=== PATIENT | male | born 2000 | race Caucasian/White ===

== ENCOUNTER → 2020-08-30 13:37 | Outpatient (BNVA) | payer OTHER, SELFPAY | PROVIDERS: Family Provider Family Medicine; PCP Optometrist; Visit Provider Registered Nurse Neonatal Intensive Care | DX: Z20.822 Contact with and (suspected) exposure to COVID-19 (principal) | CPT/HCPCS: 87635 ==

== ENCOUNTER 2024-05-17 15:33 | Inpatient (IN) | payer SELFPAY ==
[2024-05-17] VITALS (13 sets, daily range): BP systolic 113–121; BP diastolic 64–90; PULSE 96–129; RESP 12–20; TEMP 36.5–36.7; O2SAT 93–98; BMI 19.0
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
[2024-05-17 16:47] LABS: Basophils # 0.1 10^3/uL (0.0-0.1); Basophils % 0.9 %; Eosinophils # 0.1 10^3/uL (0.0-0.8); Eosinophils % 1.7 %; Hematocrit 56.9 % (37-53); Lymphocytes # 2.4 10^3/uL (0.8-4.8); Mean Corpuscular HGB Conc 33.6 g/dL (30-55); Mean Corpuscular Hemoglobin 34.2 pg (27-33); Mean Platelet Volume 10.3 fL (7.4-10.4); Monocytes # 0.6 10^3/uL (0.2-0.9); Monocytes % 7.8 %; Neutrophils % 57.2 %; Nucleated Red Blood Cells % 0 %; Platelet Count 213 10^3/cmm (157-399); Red Blood Count 5.58 10^6/uL (3.85-5.65); White Blood Count 7.53 10^3/uL (3.29-11.43)
[2024-05-17] MEDS: nicotine 21 mg Patch 1 PATCH TRANSDERMA (16:48)
[2024-05-17 17:04] LABS: Alanine Aminotransferase 16 U/L (0-41); Albumin Level 4.4 g/dL (3.5-5.2); Alcohol Level 173 mg/dL (0-10); Alkaline Phosphatase 56 U/L (40-130); Anion Gap 17.5 (5-19); Aspartate Amino Transferase 19 U/L (0-40); Blood Urea Nitrogen 9 mg/dL (6-20); Calcium 8.9 mg/dL (8.5-10.5); Carbon Dioxide 23 mmol/L (22-29); Chloride 103 mmol/L (98-107); Creatinine Clr Calc Pharmacy 111.7182; Globulin 2.7 g/dL (1.3-4.6); Glucose 144 mg/dL (65-115); Osmolality Calculated 291 mOsm/kg (285-295); Potassium 3.5 mmol/L (3.5-5.1); Sodium 140 mmol/L (136-145); Total Bilirubin 0.9 mg/dL (0.15-1.2); Total Protein 7.1 g/dL (6.6-8.7)
[2024-05-17 17:05] LABS: Acetaminophen < 5.0 ug/mL (10-30); Salicylate < 0.3 mg/dL (3-10)
--- NOTE | 2024-05-17 17:26 | PC.NURSE ---
THIS RN CONTACTED [facility] DUE TO PT REPORTING INGESTION OF KLONOPIN, SUBOXONE AND XANAX PRIOR TO ARRIVAL. POISON CONTROL WAS UPDATED ON ALL REPORTED INGESTED SUBSTANCES AND ALCOHOL LEVEL OF 173. UNABLE TO OBTAIN URINE DRUG SCREEN DUE TO REFUSAL. VITALS REPORTED. POISON CONTROL STATED THEY RECOMMEND SUPPORTIVE CARE OF SYMPTOMS AND NO RAMZICON. THEY ALSO STATE THAT 2ND AND 3RD GENERATION BENZODIAZAPINES MAY BE USED LIBERALLY FOR AGITATION OPPOSED TO ANTI-PSYCHOTIC DRUGS. POISON CONTROL WILL SEND OVER TOX BRIEFS ON MEDICATIONS INGESTED AND WILL CHECK IN ON PT LATER THIS EVENING. PT'S RN WAS UPDATED ON ALL THE ABOVE INFORMATION. PT CURRENTLY RESTING IN NO DISTRESS AT THIS TIME.
[2024-05-17] MEDS: sodium chloride 0.9% 1,000 ML 999 ML IV (19:06)
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
[2024-05-17] MEDS: sodium chloride 0.9% 1,000 ML 100 ML IV (19:44)
[2024-05-17] MEDS: nicotine 4 mg lozenge MUCOUS MEM ×2 (20:21→23:54)
--- NOTE | 2024-05-17 21:44 | PC.NURSE ---
Poison control called to get update on pt. They said the meds he took are out of the system pretty quickly and with his stable condition/improvement they will close the case and are not likely to call back.
[2024-05-18] VITALS (27 sets, daily range): BP systolic 106–119; BP diastolic 72–86; PULSE 69–109; RESP 12–24; TEMP 36.7; O2SAT 90–99; BMI 19.6
[2024-05-18] MEDS: nicotine 4 mg lozenge MUCOUS MEM ×4 (03:37→20:03)
[2024-05-18 04:18] LABS: Bacteria Urine None Seen /hpf; Hyaline Casts Urine 17.77 /lpf; RBC Urine 0-2 /hpf (0-2); Squamous Epithelial Cell Urine 0-5 /hpf (0-5); Universal Test for UA Present (0); WBC Urine 0-5 /hpf (0-5)
[2024-05-18 04:21] LABS: Basophils # 0.1 10^3/uL (0.0-0.1); Basophils % 0.9 %; Eosinophils # 0.1 10^3/uL (0.0-0.8); Eosinophils % 1.7 %; Hematocrit 52.2 % (37-53); Lymphocytes # 2.1 10^3/uL (0.8-4.8); Mean Corpuscular HGB Conc 33.1 g/dL (30-55); Mean Corpuscular Hemoglobin 34.6 pg (27-33); Mean Corpuscular Volume 104.4 fl (82-101); Mean Platelet Volume 10.5 fL (7.4-10.4); Monocytes # 0.7 10^3/uL (0.2-0.9); Monocytes % 9.2 %; Neutrophils # 4.47 10^3/uL (1.8-7.7); Neutrophils % 59.9 %; Nucleated Red Blood Cells % 0 %; Platelet Count 172 10^3/cmm (157-399); White Blood Count 7.47 10^3/uL (3.29-11.43)
[2024-05-18 04:32] LABS: Urine Color Dark Yellow (Yellow)
[2024-05-18 04:33] LABS: Add Urine Microscopic? YES; Bilirubin Urine 1+ (Negative); Blood Urine Neg (Negative); Glucose Urine UA Norm (Normal); Ketones Urine Negative (Negative); Leukocyte Esterase Urine Trace (Negative); Mucus Urine 4+ /hpf; Nitrate Urine Negative (Negative); Protein Urine Trace (Negative); Urine Appearance Clear (CLEAR); Urobilinogen Urine 4 mg/dL (Negative); pH Urine 5 (5-7)
[2024-05-18 04:36] LABS: INR 1.05 (0.8-1.2)
[2024-05-18 04:36] LABS: Amphetamines Screen Urine Positive (Negative); Barbiturates Screen Urine Negative (Negative); Benzodiazepines Screen Urine Positive (Negative); Cocaine Screen Urine Negative (Negative); Opiate Screen Urine Negative (Negative); PCP Screen Urine Negative (Negative); THC Screen Urine Positive (Negative)
[2024-05-18 04:37] LABS: Partial Thromboplastin Time 29.8 SECONDS (23.9-36.7)
[2024-05-18] MEDS: sodium chloride 0.9% 1,000 ML 999 ML IV (04:42)
[2024-05-18] MEDS: thiamine 100 mg Tablet PO ×2 (04:43→08:53)
[2024-05-18] MEDS: folic acid 1 mg Tablet PO (04:43)
[2024-05-18 04:48] LABS: Alanine Aminotransferase 13 U/L (0-41); Alkaline Phosphatase 48 U/L (40-130); Anion Gap 12.6 (5-19); Aspartate Amino Transferase 14 U/L (0-40); Blood Urea Nitrogen 10 mg/dL (6-20); Calcium 8.8 mg/dL (8.5-10.5); Carbon Dioxide 27 mmol/L (22-29); Chloride 103 mmol/L (98-107); Creatinine Clr Calc Pharmacy 128.3556; Globulin 2.2 g/dL (1.3-4.6); Glucose 93 mg/dL (65-115); Magnesium 1.9 mg/dL (1.7-2.3); Osmolality Calculated 285 mOsm/kg (285-295); Potassium 4.6 mmol/L (3.5-5.1); Sodium 138 mmol/L (136-145); Total Bilirubin 0.8 mg/dL (0.15-1.2); Total Protein 6.2 g/dL (6.6-8.7)
[2024-05-18 05:43] LABS: Thyroid Stimulating Hormone 1.38 uIU/mL (0.27-4.20); Vitamin B12 151 pg/mL (232-1245)
[2024-05-18 05:45] LABS: Folate Level 5.7 ng/mL (4.5-32.2)
[2024-05-18] MEDS: sodium chloride 0.9% 1,000 ML 100 ML IV (05:53)
[2024-05-18 06:53] LABS: Free T4 Free Thyroxine 1.15 ng/dL (0.82-1.77)
[2024-05-18] MEDS: multivitamin therapeutic Tablet 1 TAB PO (08:53)
[2024-05-18] MEDS: nicotine 21 mg Patch 1 PATCH TRANSDERMA (08:53)
--- NOTE | 2024-05-18 09:30 | PM.PN ---
Vitals/I&O/Wt Last Vital Signs Temp 98.1 F 05/18/24 04:00 Pulse 78 05/18/24 09:00 Resp 20 H 05/18/24 09:00 BP 119/79 05/18/24 08:30 Pulse Ox 99 05/18/24 09:00 O2 Del Method Room Air 05/18/24 09:00 05/17/24 05/18/24 05/18/24 22:59 06:59 14:59 Intake Total 1480 / 1480 2720 / 4200 222 / 222 Output Total 100 / 100 Balance 1480 / 1480 2620 / 4100 222 / 222 Weight last 48 hrs Weight 66 kg Weight 66 kg Weight 66 kg Weight 63.503 kg Data 05/18/24 03:36 05/18/24 03:36 A&P PDMP PDMP Reviewed: Not Reviewed Coding Level of Care Code Acute Code for Chg Fwbeatriz
[2024-05-18] MEDS: nicotine 2 mg Gum BUCCAL (10:43)
[2024-05-18] MEDS: OLANZapine 5 mg ODT PO (10:44)
[2024-05-18] MEDS: LORazepam 2 mg Tablet PO (11:37)
[2024-05-18] MEDS: haloperidol 5 mg Tablet PO ×2 (11:37→20:26)
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
[2024-05-18] MEDS: diphenhydrAMINE 50 mg Capsule PO (11:42)
--- NOTE | 2024-05-18 12:06 | PC.NURSE ---
oral B52 Patient is agitated and anxious. zyprexa was unsuccessful. Patient making statements about going to freak out . This nurse got approval from Dr. Barron for oral b52. Patient provided with his phone to remove phone numbers with no issues. Patient returned phone with no issues. Will continue to closely monitor for effects of medication.
--- NOTE | 2024-05-18 13:10 | PC.NURSE ---
Admission assessment Patient drove himself to the ED for evaluation after overdosing xanax, clonazepam, and suboxone. Patient is a daily drinker; his ETOH on arrival to the ED was 173. Patient says he drinks 6-12 Brazilian Honey shooters each day. This helps him to sleep at night. Patient also endorses smoking weed daily because it decreases his anxiety level. When this nurse asked patient if he feels suicidal at the moment. Patient denied, saying that he feels fine, that he does not need to be here in the nut house . When this nurse asked patient if he overdosed on medications to end his life patient was unclear. Patient said that he no longer wants to live, but that if he had wanted to end his life, he would have taken more meds and not drove himself to the hospital. Patient has been upset because his fiance of 4 years recently cheated on him, and now their relationship is over. Patient has caught a stalking charge from bothering his ex-girlfirend. Patient has court on 05/19/24 in [facility] and is worried about missing this. Staff and security have assured patient numerous times that the registered nurse hh case manager will handle this. Patient frequently became agitated during admission assessment. Patient refused to sign any admission documents and refused to have his VS taken. Patient was agreeable to medications to help lower the agitation level. When asking patient the suicide risk assessment questions, patient gave vague answers to some of the questions.
--- NOTE | 2024-05-18 13:13 | PC.NURSE ---
patient cussed at me refusing vitals
--- NOTE | 2024-05-18 13:14 | PC.NURSE ---
outburst On arrival to NPU from ICU, patient was agitated. Patient demanding to see the doctor right away because he was told that once he got onto the unit, he would be able to talk to the doctor and go home. Patient ripped his arm bands from his wrists and threw them onto the floor. Patient yelling obsentities. Donald echevarria Wimba was able to verbally de-esculate patient. This nurse adminstered nicotine gum and zyprexa. Patient then went to the dayroom with both Donald and Maynor cantrell and they chatted with patient. Patient visibly calmer and more cooperative.
--- NOTE | 2024-05-18 15:33 | PC.NURSE ---
During bisiting hour, patient got agitated about being on the unit. Patient kicked the door multiple times, with aggression. Security Bennett called. Security Mcguire already present, working as a 1:1. Patient did calm down enough to continue with visitation
[2024-05-18] MEDS: trazodone 50 mg Tablet PO (20:26)
--- NOTE | 2024-05-18 23:28 | PC.NURSE ---
Ally refused his vitals tonight. His respiratory rate was 16. The charge nurse was notified.
[2024-05-19 04:00] VITALS: RESP 16
--- NOTE | 2024-05-19 06:44 | PC.NURSE ---
Ally refused his vital this morning. Charge nurse was notified.
[2024-05-19 08:00] VITALS: RESP 16
[2024-05-19] MEDS: nicotine 4 mg lozenge MUCOUS MEM ×4 (08:37→16:20)
--- NOTE | 2024-05-19 08:54 | PC.NURSE ---
Morning assessment Patient irritable during morning assessment. Patient said that this nurse can get me the fuck out of here! Patient irritable and uncooperative. Patient refusing morning blood draw. Patient said that the staff here are lazy fucks who don't give a fuck about me! Patient refused morning vitamins
[2024-05-19 12:00] VITALS: RESP 18
[2024-05-19 16:00] VITALS: BP 118/85; PULSE 92; RESP 18; TEMP 36.8; O2SAT 98
--- NOTE | 2024-05-19 17:19 | P.NPUPN_ITS ---
Subjective NPU 2 Subjective: Patient presented today reporting that he is feeling better and wanting to discharge. We discussed our imperative to make sure that he is actually safe to go given his presentation and his behavior on the emergency department. She reported that I blacked out and do not really remember what happened. We discussed that that is not a better situation because he does not remember what he did. We discussed the importance of figuring out what he needs from the standpoint of either medications, mental health treatment or sober living treatment that might assist him and not repeating the events that led to him getting here. He continued to report that it was more about how he was cheated on and things of that nature. We discussed the importance of him focusing on his behaviors that got him in this situation. Mental Status Exam 2 MSE Comments: This is a slender but well developed white male in hospital scrubs with limited grooming and eye contact. No abnormal movements except for significant psychomotor retardation with occasional agitation related to having to be here. Mostly uncooperative with exam in moderate to extreme distress. Speech was decreased rate and volume with some dysarthria and almost slurring at times. Mood described as upset, affect is congruent and irritable. Thought process, linear. Thought content: patient denies suicidal or homicidal ideation but expressed significant agitation and irritability towards being hospitalized, no delusions reported or noted, and denies any auditory or visual hallucinations. Explicitly stated not suicidal and does not want to hurt self or others. Feeling volatile due to recent stressors, including the breakup of a four-year relationship, loss of job, and arrest, but reports starting to feel better. Attention and concentration are intact and memory appeared mostly reliable with likely some purposeful deception or attempted deception, but none were formally tested. He is alert and oriented x 3. Insight, judgment and impulse control are impaired. Vitals/I&O/Wt Last Vital Signs Temp 98.2 F 05/19/24 16:00 Pulse 92 05/19/24 16:00 Resp 18 05/19/24 16:00 BP 118/85 05/19/24 16:00 Pulse Ox 98 05/19/24 16:00 O2 Del Method Room Air 05/18/24 10:36 Weight last 48 hrs Weight 65.771 kg Weight 65.771 kg Weight 66 kg Weight 66 kg Weight 66 kg Data NPU 05/18/24 03:36 05/18/24 03:36 A&P Assessment and plan (1) Suicide attempt by multiple drug overdose: (2) Polysubstance use disorder: (3) Partner relational problem: (4) Depression: Plan This is a 24year old white male with a history of addiction and recent significant psychosocial stressors including discovering that his girlfriend has been cheating, active addiction and reportedly losing his job secondary to getting arrested. He denies any need for ongoing hospitalization in the moment that the conversation did not yield a clear sense that he was being discharged he essentially shut down and discontinued our conversation. The patient is experiencing significant emotional distress following the end of a four-year relationship, which involved infidelity by their partner. Despite the distress, the patient denies any suicidal ideation or intent to harm themselves or others. The patient self-reported taking an excessive amount of prescription medication, which led to their arrival at the hospital, but they did not experience any adverse physical effects from this action. The patient is currently feeling volatile but indicates a desire to move forward with their life, including attending a job interview. There is no history of mental health treatment or psychiatric hospitalization reported. 1. Consider medication 2. Encourage individual, group and milieu therapy 3. Continue q-15 minute check for safety 4. Recommend sober living treatment at the highest level of care to which the patient is willing to commit. 5. Evaluate against the backdrop of the 96-hour hold. 6. Obtain collateral information. PDMP PDMP Reviewed: Not Reviewed Involuntary Hold Information 2 Hold Status: Legal Status: 96 Hour Hold Date/Time Hold Expires: 05/23/2024 @ 0001 Attestations NPU 2 Medical Necessity Statement*: Inpatient hospitalization is medically necessary and the clinically appropriate intervention at this time. We will monitor medications and make changes as indicated. The patient's Likely length of stay is 2-4 days. Coding Level of Care Code Acute Code for [facility] Fwd Diagnoses Suicide attempt by multiple drug overdose T50.912A Polysubstance use disorder F19.90 Partner relational problem Z63.0 Depression F32.A
[2024-05-19 20:00] VITALS: BP 90/56; PULSE 69; RESP 16; TEMP 36.8; O2SAT 97
--- NOTE | 2024-05-20 00:07 | PC.NURSE ---
Pt. refused 0000 V/S. Respirations 16 no s/s of distress noted. Charge nurse informed.
--- NOTE | 2024-05-20 04:18 | PC.NURSE ---
Pt. refused 0400 V/S. Pt. said this is fucking ridiculous . Charge nurse informed.
--- NOTE | 2024-05-20 06:51 | CSC.PPN_ITS ---
A&P PDMP PDMP Reviewed: Not Reviewed
--- NOTE | 2024-05-20 06:51 | W.CSC.PN ---
A&P PDMP PDMP Reviewed: Not Reviewed
--- NOTE | 2024-05-20 06:52 | P.NPUPN_ITS ---
Subjective NPU 2 Subjective: Patient presented today reporting that he is feeling all right. He reports that he had no intention of killing himself and that he has limited addiction issues reporting that he only smokes marijuana and likes to get high that way but generally speaking otherwise he avoids drugs and he works and that he is a good person. He reports that he just did not feel well with finding out that his girlfriend was cheating and got out of control. He reports that he excepts that that situation is in the past and just wants to get out and get back to work and be done with the hospital. Mental Status Exam 2 MSE Comments: This is a slender but well developed white male in hospital scrubs with limited grooming and eye contact. No abnormal movements except for mild psychomotor retardation. Mostly cooperative with exam in no acute distress. Speech was decreased rate and volume but improving. Mood described as better I was just being stupid, affect is congruent. Thought process, linear. Thought content: patient denies suicidal or homicidal ideation, no delusions reported or noted, and denies any auditory or visual hallucinations. Explicitly stated not suicidal and does not want to hurt self or others. Feeling volatile due to recent stressors, including the breakup of a four-year relationship, loss of job, and arrest, but reports starting to feel better. Attention and concentration are intact and memory appeared mostly reliable with likely some purposeful deception or attempted deception, but none were formally tested. He is alert and oriented x 3. Insight and judgment are limited and impulse control is limited. Vitals/I&O/Wt Last Vital Signs Temp 98.2 F 05/19/24 20:00 Pulse 69 05/19/24 20:00 Resp 16 05/19/24 20:00 BP 90/56 05/19/24 20:00 Pulse Ox 97 05/19/24 20:00 O2 Del Method Room Air 05/19/24 20:00 05/19/24 05/19/24 05/20/24 14:59 22:59 06:59 Intake Total 222 / 222 Output Total 100 / 100 Balance 122 / 122 Weight last 48 hrs Weight 65.771 kg Weight 65.771 kg Data NPU 05/18/24 03:36 05/20/24 14:10 A&P Assessment and plan (1) Suicide attempt by multiple drug overdose: (2) Polysubstance use disorder: (3) Partner relational problem: (4) Depression: Plan This is a 24year old white male with a history of addiction and recent significant psychosocial stressors including discovering that his girlfriend has been cheating, active addiction and reportedly losing his job secondary to getting arrested. He denies any need for ongoing hospitalization in the moment that the conversation did not yield a clear sense that he was being discharged he essentially shut down and discontinued our conversation. The patient is experiencing significant emotional distress following the end of a four-year relationship, which involved infidelity by their partner. Despite the distress, the patient denies any suicidal ideation or intent to harm themselves or others. The patient self-reported taking an excessive amount of prescription medication, which led to their arrival at the hospital, but they did not experience any adverse physical effects from this action. The patient is currently feeling volatile but indicates a desire to move forward with their life, including attending a job interview. There is no history of mental health treatment or psychiatric hospitalization reported. 1. Consider medication 2. Encourage individual, group and milieu therapy 3. Continue q-15 minute check for safety 4. Recommend sober living treatment at the highest level of care to which the patient is willing to commit. 5. Evaluate against the backdrop of the 96-hour hold. 6. Obtain collateral information. PDMP PDMP Reviewed: Not Reviewed Involuntary Hold Information 2 Hold Status: Legal Status: 96 Hour Hold Date/Time Hold Expires: 05/23/2024 @ 0001 Attestations NPU 2 Medical Necessity Statement*: Inpatient hospitalization is medically necessary and the clinically appropriate intervention at this time. We will monitor medications and make changes as indicated. The patient's Likely length of stay is 1-3 days. Coding Level of Care Code Acute Code for [facility] Fwd Diagnoses Suicide attempt by multiple drug overdose T50.912A Polysubstance use disorder F19.90 Partner relational problem Z63.0 Depression F32.A
[2024-05-20] MEDS: nicotine 4 mg lozenge MUCOUS MEM ×8 (08:07→23:18)
--- NOTE | 2024-05-20 09:00 | PC.NURSE ---
MEDS, ASSESSMENT PT REFUSED MEDS AND ASSESSMENT, WILL CONTINUE TO MONITOR.
[2024-05-20 12:00] VITALS: BP 123/74; PULSE 83; RESP 16; TEMP 36.8; O2SAT 99
[2024-05-20 14:37] LABS: Alanine Aminotransferase 18 U/L (0-41); Albumin Level 4.2 g/dL (3.5-5.2); Alkaline Phosphatase 59 U/L (40-130); Aspartate Amino Transferase 22 U/L (0-40); Blood Urea Nitrogen 9 mg/dL (6-20); Calcium 9.4 mg/dL (8.5-10.5); Carbon Dioxide 30 mmol/L (22-29); Chloride 97 mmol/L (98-107); Creatinine Clr Calc Pharmacy 128.1944; Globulin 2.8 g/dL (1.3-4.6); Glucose 65 mg/dL (65-115); Osmolality Calculated 277 mOsm/kg (285-295); Sodium 135 mmol/L (136-145); Total Bilirubin 1.1 mg/dL (0.15-1.2)
[2024-05-20 16:00] VITALS: BP 141/87; PULSE 90; RESP 17; TEMP 36.4; O2SAT 98
[2024-05-20 20:00] VITALS: BP 148/104; PULSE 91; RESP 18; TEMP 36.3; O2SAT 96
[2024-05-20] MEDS: trazodone 50 mg Tablet PO ×2 (20:02→23:18)
[2024-05-20] MEDS: hyDROXYzine 25 mg Capsule 50 MG PO (20:02)
[2024-05-21 06:00] VITALS: BP 99/61; PULSE 69; RESP 16; TEMP 36.4; O2SAT 97
[2024-05-21] MEDS: nicotine 4 mg lozenge MUCOUS MEM ×6 (08:02→20:14)
[2024-05-21 14:00] VITALS: RESP 16
--- NOTE | 2024-05-21 18:22 | PC.NURSE ---
DUE TO SEVERE WEATHER, VITALS WERE NOT OBTAINED OTHER THAN RESPIRATIONS WERE OBTAINED AT 16. CHARGE NURSE NOTIFIED.
--- NOTE | 2024-05-21 19:33 | P.NPUPN_ITS ---
Subjective NPU 2 Subjective: Patient presented today reporting that he is doing fine. He endorsed being hopeful that he is able to manage his life moving forward and not return to this, setting. He reports that he learned his lesson and accepts that things can go wrong and you just have to deal with it. He reports that his plan is to go and bury himself and work and not look back. He continues to report a plan to still smoke weed but he does not, do any other drugs per his report. He continued to endorse a desire to avoid starting any medications. He was excited about the likely plan for discharge tomorrow. Mental Status Exam 2 MSE Comments: This is a slender but well developed white male in hospital scrubs with grooming and eye contact. No abnormal movements Cooperative with exam in no acute distress. Speech was decreased rate and volume but improving. Mood described as better, affect is congruent. Thought process, linear. Thought content: patient denies suicidal or homicidal ideation, no delusions reported or noted, and denies any auditory or visual hallucinations. Attention and concentration are intact and memory appeared mostly reliable, but none were formally tested. He is alert and oriented x 3. Insight and judgment are limited and impulse control is limited. Vitals/I&O/Wt Last Vital Signs Temp 98.2 F 05/21/24 20:53 Pulse 82 05/21/24 20:53 Resp 15 05/21/24 20:53 BP 111/71 05/21/24 20:53 Pulse Ox 97 05/21/24 20:53 O2 Del Method Room Air 05/21/24 20:53 Data NPU 05/18/24 03:36 05/20/24 14:10 A&P Assessment and plan (1) Suicide attempt by multiple drug overdose: (2) Polysubstance use disorder: (3) Partner relational problem: (4) Depression: Plan This is a 24year old white male with a history of addiction and recent significant psychosocial stressors including discovering that his girlfriend has been cheating, active addiction and reportedly losing his job secondary to getting arrested. He denies any need for ongoing hospitalization in the moment that the conversation did not yield a clear sense that he was being discharged he essentially shut down and discontinued our conversation. The patient is experiencing significant emotional distress following the end of a four-year relationship, which involved infidelity by their partner. Despite the distress, the patient denies any suicidal ideation or intent to harm themselves or others. The patient self-reported taking an excessive amount of prescription medication, which led to their arrival at the hospital, but they did not experience any adverse physical effects from this action. The patient is currently feeling volatile but indicates a desire to move forward with their life, including attending a job interview. There is no history of mental health treatment or psychiatric hospitalization reported. 1. Consider medication. He is not interested in restarting any medication. 2. Encourage individual, group and milieu therapy 3. Continue q-15 minute check for safety 4. Recommend sober living treatment at the highest level of care to which the patient is willing to commit. 5. Evaluate against the backdrop of the 96-hour hold. 6. Obtain collateral information. 7. Tentative plan for discharge tomorrow. PDMP PDMP Reviewed: Not Reviewed Involuntary Hold Information 2 Hold Status: Legal Status: 96 Hour Hold Date/Time Hold Expires: 05/23/2024 @ 0001 Attestations NPU 2 Medical Necessity Statement*: Inpatient hospitalization is medically necessary and the clinically appropriate intervention at this time. We will monitor medications and make changes as indicated. The patient's Likely length of stay is 1-2 days. Coding Level of Care Code Acute Code for [facility] Fwd Diagnoses Suicide attempt by multiple drug overdose T50.912A Polysubstance use disorder F19.90 Partner relational problem Z63.0 Depression F32.A
[2024-05-21] MEDS: trazodone 50 mg Tablet PO ×2 (20:13→21:45)
[2024-05-21] MEDS: hyDROXYzine 25 mg Capsule 50 MG PO (20:14)
[2024-05-21 20:53] VITALS: BP 111/71; PULSE 82; RESP 15; TEMP 36.8; O2SAT 97
[2024-05-22 06:00] VITALS: BP 121/75; PULSE 70; RESP 17; TEMP 36.8; O2SAT 96
[2024-05-22] MEDS: nicotine 4 mg lozenge MUCOUS MEM ×2 (07:57→10:14)
[2024-05-22] MEDS: folic acid 1 mg Tablet PO (08:46)
[2024-05-22] MEDS: thiamine 100 mg Tablet PO (08:46)
[2024-05-22] MEDS: multivitamin therapeutic Tablet 1 TAB PO (08:46)
--- NOTE | 2024-05-22 09:50 | P.NPUDS_ITS ---
Diagnoses at Discharge Discharge Diagnosis (1) Suicide attempt by multiple drug overdose: Status: Acute (2) Polysubstance use disorder: Status: Acute (3) Partner relational problem: Status: Acute (4) Depression: Status: Acute Reason for Visit Reason for Visit: mhe Brief History: HPI NPU History of Present Illness Ally Gonsalez is a 24 year old male who presented to the emergency department with the following report: Ally Gonsalez is a 24 yo man w/ polysubstance use d/o who presented to the ED on 05/17/2024 after a suicide attempt where he consumed 2 Xanax bars, 4 Clonazepam pills and ate a Suboxone strip. He tells me that has had a girlfriend for 4yrs and was engaged to be for the last 2 years. She left him 2 weeks ago, and he was madly in love with her. He states that he caught her cheating on him. He is hurt that she would not talk to him or be upfront and with him. His feels that his dad does not care about him. His mother when he was 5 years due drug overdose on pain killers. He states, I was really broken. I am trying so hard and everything back firing and tired of getting in trouble. He feels that no one cares about him. He is upset that his ex-girlfriend took his dog, despite his having the paper work showing that it is his. He feels that he does not have kids or a purpose and feels heart broken, so he took 2 Xanax bars, 4 Clonazepam pills and ate a Suboxone strip. He realized that he made a wrong decision, so he drove himself to the hospital. He smokes Marijuana primarily and generally stays away from everything else. He consumes alcohol daily. He had about 12 shots of [place] Honey whiskey last night. In the ED, his alcohol level was elevated. His acetaminophen and salicylate levels were within normal limits. Per ED notes, patient tried to run twice from the ED, when he understood that he had made a suicide attempt. He was combative and required restraints, that was later removed, after the ED physician spoke with him. The Psychiatrist was consulted by the ED physician, who recommended admission to the ICU for further monitoring and management. He was admitted to the ICU for definitive treatment of those issues but was quickly medically cleared and transferred to the neuropsychiatric unit for definitive treatment of these addiction issues and his mental health concerns. He is unknown to [facility] psychiatry through inpatient services but there appears to have been an outpatient contact back in 2017 but no notes were available. He presented with a UDS positive for benzodiazepines, cannabis and amphetamines reporting. Chief complaint Overdose on prescription medications following emotional distress from a breakup. History of the present complaint The patient reports experiencing significant emotional distress following the end of a four-year relationship due to infidelity. The breakup has led to feelings of loss, as the partner took their dogs when leaving. The patient expresses a sense of volatility but notes a gradual improvement in mood. The patient denies any suicidal ideation or intent to harm themselves or others. However, they mention taking an excessive amount of prescription medication, which prompted them to seek help at the hospital. The patient drove themselves to the hospital and reports not experiencing any adverse physical effects such as vomiting or illness from the medication. The patient is currently unemployed and has a job interview scheduled for the following morning. They attribute the loss of their previous job to an arrest incident involving their former partner. The patient expresses frustration and confusion about the circumstances leading to their job loss. The patient denies any history of mental health treatment or previous psychiatric hospitalizations. They also deny substance use, including tobacco, alcohol, marijuana, and methamphetamine, although they mention occasional alcohol consumption. The patient has not been placed on a psychiatric hold before this incident and voluntarily sought help after taking the medication. Mental health history No history of mental health treatment or psychiatric hospitalization reported. Denies suicidal ideation or intent to harm self or others. No current medications for mental health. Social history Currently unemployed and has a job interview scheduled. Lost previous job due to an arrest incident involving a partner. Recently ended a four-year relationship, during which the partner left and took the dogs. No use of tobacco, alcohol, cannabis, methamphetamine, or other substances, except for occasional alcohol consumption. No history of mental health treatment or psychiatric hospitalization. No allergies to medications. Hospital Course Hospital Course He slowly acclimated to the individual, group and milieu therapies. He presented endorsing depression, anxiety, active drug use and recent difficulties with his 4-year relationship leading to the suicide attempt that led to his hospitalization. He was not interested in trying medication and so medications were not started. He was observed against the backdrop of his 96-hour hold to identify whether there is still a risk for harm to himself or others. His abstinence from substances as well as the treatment milieu had a positive response. He worked with the social work team to establish appropriate follow- up services and was connected to appropriate community resources. He was able to contract for safety outside of the hospital prior to discharge. During the hospitalization, patient had routine laboratory studies which were within normal limits except for few outliers. Additionally there was a general medical evaluation which was also within normal limits and revealed no new acute processes. At the time of discharge, he denied psychosis or lethality. Mood and anxiety were well managed. Patient endorsed a plan to avoid all drugs of abuse, and agreed to follow-up with the aftercare recommendations of the treatment team. Patient was evaluated and deemed to be absent credible lethality, and achieved maximum benefit from inpatient hospitalization, so he was discharged. Involuntary Hold Information Hold Status: Legal Status: 96 Hour Hold Date/Time Hold Expires: 05/23/2024 @ 0001 Mental Status Exam MSE Comments: This is a slender but well developed white male in hospital scrubs with grooming and eye contact. No abnormal movements Cooperative with exam in no acute distress. Speech was decreased rate and volume but improving. Mood described as better, affect is congruent. Thought process, linear. Thought content: patient denies suicidal or homicidal ideation, no delusions reported or noted, and denies any auditory or visual hallucinations. Attention and concentration are intact and memory appeared mostly reliable, but none were formally tested. He is alert and oriented x 3. Insight and judgment are limited and impulse control is limited. Discharge Data Studies Completed and Pending: Laboratory Results WBC 7.47 10^3/uL (3.2 9-11.43) 05/18/24 03:36 RBC 5.00 10^6/uL (3.8 5-5.65) 05/18/24 03:36 Hgb 17.30 g/dL (11.27 -16.99) H 05/18/24 03:36 Hct 52.2 % (37-53) 05/18/24 03:36 MCV 104.4 fl (82-101) H 05/18/24 03:36 MCH 34.6 pg (27-33) H 05/18/24 03:36 MCHC 33.1 g/dL (30-55) 05/18/24 03:36 RDW 15.0 % (12.1-15.1 ) 05/18/24 03:36 Plt Count 172 10^3/cmm (157 -399) 05/18/24 03:36 MPV 10.5 fL (7.4-10.4 ) H 05/18/24 03:36 Neut % (Auto) 59.9 % 05/18/24 03:36 Lymph % (Auto) 28.0 % 05/18/24 03:36 Pitt % (Auto) 9.2 % 05/18/24 03:36 Eos % (Auto) 1.7 % 05/18/24 03:36 Baso % (Auto) 0.9 % 05/18/24 03:36 Neut # (Auto) 4.47 10^3/uL (1.8 -7.7) 05/18/24 03:36 Lymph # (Auto) 2.1 10^3/uL (0.8- 4.8) 05/18/24 03:36 Pitt # (Auto) 0.7 10^3/uL (0.2- 0.9) 05/18/24 03:36 Eos # (Auto) 0.1 10^3/uL (0.0- 0.8) 05/18/24 03:36 Baso # (Auto) 0.1 10^3/uL (0.0- 0.1) 05/18/24 03:36 Nucleated RBC % (a uto) 0 % 05/18/24 03:36 Nucleated RBCs # 0.0 /100WBC 05/18/24 03:36 PT 14.50 SECONDS (12 .1-14.9) 05/18/24 03:36 INR 1.05 (0.8-1.2) 05/18/24 03:36 APTT 29.8 SECONDS (23. 9-36.7) 05/18/24 03:36 Sodium 135 mmol/L (136-1 45) L 05/20/24 14:10 Potassium 5.0 mmol/L (3.5-5 .1) 05/20/24 14:10 Chloride 97 mmol/L (98-107 ) L 05/20/24 14:10 Carbon Dioxide 30 mmol/L (22-29) H 05/20/24 14:10 Anion Gap 13.0 (5-19) 05/20/24 14:10 BUN 9 mg/dL (6-20) 05/20/24 14:10 Creatinine 0.9 mg/dL (0.7-1. 2) 05/20/24 14:10 GFR Calculation 102.0 mL/min (90- 130) 05/20/24 14:10 Glucose 65 mg/dL (65-115) 05/20/24 14:10 Calculated Osmolal ity 277 mOsm/kg (285- 295) L 05/20/24 14:10 Calcium 9.4 mg/dL (8.5-10 .5) 05/20/24 14:10 Magnesium 1.9 mg/dL (1.7-2. 3) 05/18/24 03:36 Total Bilirubin 1.1 mg/dL (0.15-1 .2) 05/20/24 14:10 AST 22 U/L (0-40) 05/20/24 14:10 ALT 18 U/L (0-41) 05/20/24 14:10 Alkaline Phosphata se 59 U/L (40-130) 05/20/24 14:10 Total Protein 7.0 g/dL (6.6-8.7 ) 05/20/24 14:10 Albumin 4.2 g/dL (3.5-5.2 ) 05/20/24 14:10 Globulin 2.8 g/dL (1.3-4.6 ) 05/20/24 14:10 Vitamin B12 151 pg/mL (232-12 45) L 05/18/24 03:36 Folate 5.7 ng/mL (4.5-32 .2) 05/18/24 03:36 TSH 1.38 uIU/mL (0.27 -4.20) 05/18/24 03:36 Free T4 1.15 ng/dL (0.82- 1.77) 05/18/24 03:36 Urine Color Dark yellow (Yel low) A 05/18/24 04:00 Urine Appearance Clear (CLEAR) 05/18/24 04:00 Urine pH 5 (5-7) 05/18/24 04:00 Ur Specific Gravit y 1.030 (1.005-1.0 30) 05/18/24 04:00 Urine Protein Trace (Negative) H 05/18/24 04:00 Urine Glucose (UA) Norm (Normal) 05/18/24 04:00 Urine Ketones Negative (Negati ve) 05/18/24 04:00 Urine Blood Neg (Negative) 05/18/24 04:00 Urine Nitrate Negative (Negati ve) 05/18/24 04:00 Urine Bilirubin 1+ (Negative) H 05/18/24 04:00 Urine Urobilinogen 4 mg/dL (Negative ) H 05/18/24 04:00 Ur Leukocyte Eri ase Trace (Negative) A 05/18/24 04:00 Urine RBC 0-2 /hpf (0-2) 05/18/24 04:00 Urine WBC 0-5 /hpf (0-5) 05/18/24 04:00 Ur Squamous Epith Cells 0-5 /hpf (0-5) 05/18/24 04:00 Amorphous Sediment Not Reportable 05/18/24 04:00 Urine Bacteria None seen /hpf (N ONE) 05/18/24 04:00 Hyaline Casts 17.77 /lpf 05/18/24 04:00 Urine Mucus 4+ /hpf 05/18/24 04:00 Salicylates < 0.3 mg/dL (3-10 ) L 05/17/24 16:39 Urine Opiates Scre en Negative ng/mL (N egative) 05/18/24 04:00 Acetaminophen < 5.0 ug/mL (10-3 0) L 05/17/24 16:39 Ur Barbiturates Sc reen Negative ng/mL (N egative) 05/18/24 04:00 Ur Phencyclidine S crn Negative ng/mL (N egative) 05/18/24 04:00 Ur Amphetamines Sc reen Positive ng/mL (N egative) H 05/18/24 04:00 U Benzodiazepines Scrn Positive ng/mL (N egative) H 05/18/24 04:00 Urine Cocaine Scre en Negative ng/mL (N egative) 05/18/24 04:00 U Marijuana (THC) Screen Positive ng/mL (N egative) H 05/18/24 04:00 Ethyl Alcohol 173 mg/dL (0-10) H 05/17/24 16:39 Vitals: Last Vital Signs Temp 98.2 F 05/22/24 10:17 Pulse 70 05/22/24 10:17 Resp 17 05/22/24 10:17 BP 121/75 05/22/24 10:17 Pulse Ox 96 05/22/24 10:17 O2 Del Method Room Air 05/22/24 06:00 Discharge Plan Discharge Patient Disposition: Home Condition: Stable Prescriptions: No Action No Known Home Medications Discharge Orders: Discharge Order (Routine); Ordered 05/22/24 Ordered By: Sj Barron Referrals: Lana Sanders O.D. [Primary Care Provider] - Priya Kidd DO [Family Provider] - Discharge Diet: Regular Discharge Activity: Resume usual activity Patient Instructions: Alcohol Abuse, Depression (DC), Help Prevent Suicide (DC), Suicide Prevention (DC), Opioid Safety Discharge Attestations NPU Time Spent in Discharge Care*: less than 30 min Specific Discharge Activities: Specific discharge activities: educating patient, discussing with bilingual patient support caseworker/social workers/dc planners, documenting/other paperwork and evaluating patient/reviewing data Coding Level of Care Code Acute Code for Chg Fwd Diagnoses Suicide attempt by multiple drug overdose T50.912A Polysubstance use disorder F19.90 Partner relational problem Z63.0 Depression F32.A
[2024-05-22 10:17] VITALS: BP 121/75; PULSE 70; RESP 17; TEMP 36.8; O2SAT 96
== END 2024-05-22 12:00 | disposition home or self-care (01) | DRG 918 ==
LOC: ER 17:57 → ICU 19:01 → NP 05-18 10:32
PROVIDERS: Internal Medicine; Admitting Provider Hospitalist; Emergency Provider Family Medicine; Family Provider Family Medicine; PCP Optometrist; Visit Provider Psychiatry & Neurology Psychiatry
DX: T42.4X2A Poisoning by benzodiazepines, intentional self-harm, initial encounter (principal); Z63.0 Problems in relationship with spouse or partner; F12.90 Cannabis use, unspecified, uncomplicated; F10.10 Alcohol abuse, uncomplicated; Y90.6 Blood alcohol level of 120-199 mg/100 ml; F17.210 Nicotine dependence, cigarettes, uncomplicated; F32.A Depression, unspecified; D53.9 Nutritional anemia, unspecified
CPT/HCPCS: 36415; 80053; 80306; 80307; 81001; 82607; 82746; 83735; 84439; 84443; 85025; 85610; 85730; 94664; 96360; 97150; 97165; 99285; J7030; J9999; Q0163